=== PATIENT | male | born 1990 | race Caucasian/White ===

== ENCOUNTER 2020-02-21 11:30 | Emergency (ER) | payer OTHER ==
[~2020-02-21] VITALS: Ht 170.2 cm; Wt 79.8 kg
[2020-02-21] MEDS ORDERED: VANCOMYCIN IV 1,500 MG in IV DEXTROSE 5% 250 ML IV ONE (12:00)
[2020-02-21] MEDS ORDERED: KETOROLAC TROMETHAMINE 30 MG INJ IVP ONE (12:00)
[2020-02-21] MEDS ORDERED: IV NORMAL SALINE 1000 ML BAG IV ONE (12:00)
[2020-02-21] MEDS ORDERED: PIPERACILLIN SODIUM/TAZOBACTAM 3.375 G in IV DEXTROSE 5% 50 ML IV ONE (12:00)
[2020-02-21] MEDS ORDERED: IOHEXOL 300MG/ML 100 ML INFUS..BTL ONE (12:12)
[2020-02-21] MEDS ORDERED: SWABABLE VALVE TRANSFER SET EA MC ONE (12:12)
[2020-02-21] MEDS ORDERED: IV NORMAL SALINE 250 ML IV ONE (12:12)
[2020-02-21] MEDS ORDERED: VANCOMYCIN IV 200 ML ONE (12:31)
[2020-02-21] MEDS ORDERED: PIPERACILLIN/TAZOBACTAM/D5W 50 ML IV ONE (12:31)
[2020-02-21] MEDS ORDERED: KETOROLAC TROMETHAMINE 30 MG INJ ONE (12:31)
[2020-02-21 12:37] LABS: BASOPHILS % (AUTO) 0.3 % (0.0-2.0); EOSINOPHILS % (AUTO) 0.2 % (0.0-7.0); HEMOGLOBIN 14.9 g/dL (12.5-16.3); LYMPHOCYTES # (AUTO) 1.6 K/uL (20.0-40.0); MEAN CORPUSCULAR HEMOGLOBIN 30.7 uug (23.8-33.4); MEAN CORPUSCULAR HGB CONC 34 g/dL (32.5-36.3); MEAN CORPUSCULAR VOLUME 90.8 fL (73.0-96.2); MONOCYTES # (AUTO) 1.2 K/uL (2.0-10.0); NEUTROPHILS # (AUTO) 14.5 K/uL (1.8-8.9); NEUTROPHILS % (AUTO) 83.5 % (38.5-71.5); PLATELET COUNT (AUTO) 264 K/uL (152-348); RED BLOOD CELL COUNT(AUTO) 4.84 MIL/uL (4.06-5.63); WHITE BLOOD COUNT (AUTO) 17.3 K/uL (3.6-10.2)
[2020-02-21 12:44] LABS: CREATININE 0.9 mg/dL (0.6-1.3); POTASSIUM 4.4 mmol/L (3.5-5.1)
[2020-02-21 12:50] LABS: BILIRUBIN,DIRECT 0.1 mg/dL (0.0-0.2); BILIRUBIN,TOTAL 0.2 mg/dL (0.2-1.0); TOTAL PROTEIN, SERUM 7.7 g/dL (6.4-8.2)
--- NOTE | 2020-02-21 16:24 | NUR ---
Patient does not wish to proceed with medical care recommended by ( [facility]). Patient given information related to possible complications, up to and including , which could occur as a result of leaving the hospital at this time. Patient verbalizes understanding of risks involved due to leaving against medical advice. Patient has signed AMA form.
== END 2020-02-21 14:30 | disposition left against medical advice (07) ==
LOC: ER 11:30
DX: M65.841 Other synovitis and tenosynovitis, right hand (principal); L02.511 Cutaneous abscess of right hand; S61.011S Laceration without foreign body of right thumb without damage to nail, sequela; W26.8XXS Contact with other sharp object(s), not elsewhere classified, sequela; D72.829 Elevated white blood cell count, unspecified; F15.10 Other stimulant abuse, uncomplicated; F17.290 Nicotine dependence, other tobacco product, uncomplicated
CPT/HCPCS: 36415; 80048; 80076; 83605; 85025; 85651; 85730; 86140; 87040 ×2; 93005; 96365; 96367; 96375; 99291; 99406; J1885; J2543; J3370; A4663; J7050; Q9967